=== PATIENT | male | born 1985 | race Caucasian/White ===

== ENCOUNTER 2017-04-15 09:23 | Emergency (ER) | payer SELFPAY ==
[2017-04-15 11:52] VITALS: BP 111/60
== END 2017-04-15 11:52 | disposition home or self-care (01) ==
LOC: ED 09:23
DX: R10.30 Lower abdominal pain, unspecified (principal); R11.2 Nausea with vomiting, unspecified; R42 Dizziness and giddiness; Z90.89 Acquired absence of other organs
CPT/HCPCS: J2270; J2405; J7030; Q0162